=== PATIENT | male | born 1990 | race African-American/Black ===

== ENCOUNTER 2018-12-19 16:02 | Emergency (ER) | payer SELFPAY ==
[~2018-12-19] VITALS: Ht 175.3 cm; Wt 63.5 kg
[2018-12-19 16:10] VITALS: BP 137/93
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
[2018-12-19] MEDS ORDERED: Lidocaine 1% Plain 30 ml INJ ONE (16:45)
[2018-12-19] MEDS ORDERED: Tetanus/Diptheria/Pertussis IM ONE (16:45)
[2018-12-19] MEDS ORDERED: Augmentin 875mg Tab ORAL ONE (16:45)
[2018-12-19] MEDS ORDERED: AUGMENTIN 875-1 EAC1 ORAL (17:11)
[2018-12-19 17:18] VITALS: BP 112/85
--- NOTE | 2018-12-19 17:18 | NUR ---
ER DISCHARGE NOTE: Patient is cleared to be discharged per ERMD, pt is aox4, on room air, with stable vital signs. pt was given dc instructions, pt was able to verbalize understanding, pt id band removed. pt wound covered with gauze dressing. pt is able to ambulate with steady gait. pt took all belongings. pt stable upon discharge.
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
== END 2018-12-19 17:18 | disposition home or self-care (01) ==
LOC: EMR 16:50
DX: S71.111A Laceration without foreign body, right thigh, initial encounter (principal); Z23 Encounter for immunization; W26.9XXA Contact with unspecified sharp object(s), initial encounter; Y92.9 Unspecified place or not applicable
CPT/HCPCS: 12001; 90471; 90715; 99283; J2001